=== PATIENT | male | born 1960 | race Caucasian/White ===

== ENCOUNTER 2020-10-19 10:23 | Outpatient (CLI) | payer OTHER, SELFPAY ==
[2020-10-19 10:56] LABS: Basophils Percent Auto 0.6 % (0.2-1.2); Eosinophils Absolute Auto 0.2 K/mm3 (0-0.3); Eosinophils Percent Auto 3.2 % (0-4.4); Hematocrit 51.1 % (42.0-52.0); Hemoglobin 16.7 g/dL (14.0-18.0); Immature Granulocyte Absolute 0.03 K/mm3 (0.00-0.031); Immature Granulocyte Percent A 0.5 % (0-0.5); Immature Platelet Fraction Pct 5.9 % (0.9-11.2); Lymphocytes Absolute Auto 1.76 K/mm3 (0.9-3.2); Mean Corpuscular HGB Conc 32.7 g/dl (32-36); Mean Corpuscular Hemoglobin 28.4 pg (26-34); Mean Corpuscular Volume 86.8 fl (80-100); Mean Platelet Volume 11.2 fl (7.4-10.4); Monocytes Absolute Auto 0.6 K/mm3 (0.1-0.6); Monocytes Percent Auto 8.6 % (2.6-8.5); Neutrophils Absolute Auto 3.9 K/mm3 (1.3-6.7); Neutrophils Percent Auto 60.1 % (45.5-73.1); Platelet Count Result 138 k/mm3 (150-375); Red Blood Count 5.89 M/mm3 (4.6-6.20); Red Cell Distribution Width 13.2 % (11.5-14.5); White Blood Count 6.5 K/mm3 (4.5-10.0)
[2020-10-19 11:03] LABS: Anion Gap 9 mmol/L (8-16); Blood Urea Nitrogen 19 mg/dL (9-20); Calcium 10.4 mg/dL (8.4-10.2); Carbon Dioxide 26 mmol/L (22-30); Chloride 104 mmol/L (98-107); Cholesterol 147 mg/dL (0-200); Estimated Glomerular Filt Rate 56; Glucose 115 mg/dL (65-110); HDL Direct 33 mg/dL; Potassium 4.6 mmol/L (3.4-5.0); Sodium 139 mmol/L (137-145); Triglycerides 124 mg/dL (<150)
[2020-10-19 11:13] LABS: LDL Cholesterol Direct 80 mg/dL
[2020-10-19 11:33] LABS: Prostate Specific Antigen 0.3 ng/mL (< OR = 4.0)
== END 2020-10-19 10:24 | disposition home or self-care (01) ==
LOC: ANHLAB 10:26
PROVIDERS: PCP Family Medicine; Visit Provider Family Medicine
DX: Z13.220 Encounter for screening for lipoid disorders (principal); I10 Essential (primary) hypertension; Z12.5 Encounter for screening for malignant neoplasm of prostate
CPT/HCPCS: 36415; 80048; 80061; 84153; 84443; 85025; 85055; G0103

== ENCOUNTER 2020-12-01 14:13 | Emergency (ER) | payer OTHER, SELFPAY ==
--- NOTE | ~2020-12-01 | US_ITS ---
EXAMINATION: US right upper quadrant DATE: 12/01/2020 17:18 INDICATION: Right upper quadrant pain, possible obstructing gallstone TECHNIQUE: Multiple grayscale and Doppler ultrasound images of the abdomen were obtained. COMPARISON: None available FINDINGS: Bowel gas obscures visualization of the pancreas. The liver demonstrates increased echogeni city, heterogenous echotexture, and decreased through transmission. No surface nodularity. Normal hep atopetal flow in the main portal vein. There appears to be a small amount of sludge in the gallbladde r. There is no gallbladder wall thickening or pericholecystic fluid. No gallstones are identified. Th e normal common bile duct measures 6 mm. Sonographic Huang sign is positive. IMPRESSION: 1. Gallbladder sludge and positive sonographic Huang sign without additional findings of acute shani cystitis. If there is high clinical concern for cholecystitis, consider further evaluation with nucle ar hepatobiliary scan. Reviewed, dictated and finalized at location A. IMPRESSION: 1. Gallbladder sludge and positive sonographic Huang sign without additional f indings of acute cholecystitis. If there is high clinical concern for cholecyst itis, consider further evaluation with nuclear hepatobiliary scan.
[2020-12-01 17:14] VITALS: BP 156/91; PULSE 78; RESP 16; TEMP 37.1; O2SAT 96
[2020-12-01 17:34] LABS: Basophils Percent Auto 0.3 % (0.2-1.2); Eosinophils Absolute Auto 0.2 K/mm3 (0-0.3); Hematocrit 46.4 % (42.0-52.0); Hemoglobin 15.5 g/dL (14.0-18.0); Immature Granulocyte Absolute 0.04 K/mm3 (0.00-0.031); Immature Granulocyte Percent A 0.3 % (0-0.5); Lymphocytes Absolute Auto 0.99 K/mm3 (0.9-3.2); Lymphocytes Percent Auto 8.4 % (18.3-44.2); Mean Corpuscular HGB Conc 33.4 g/dl (32-36); Mean Corpuscular Hemoglobin 28.9 pg (26-34); Mean Corpuscular Volume 86.4 fl (80-100); Monocytes Absolute Auto 1.2 K/mm3 (0.1-0.6); Monocytes Percent Auto 9.8 % (2.6-8.5); Neutrophils Absolute Auto 9.3 K/mm3 (1.3-6.7); Neutrophils Percent Auto 79.2 % (45.5-73.1); Platelet Count Result 165 k/mm3 (150-375); Red Blood Count 5.37 M/mm3 (4.6-6.20); Red Cell Distribution Width 13.2 % (11.5-14.5); White Blood Count 11.8 K/mm3 (4.5-10.0)
[2020-12-01 17:47] LABS: Alanine Aminotransferase 19 U/L (4-50); Albumin Level 4.3 g/dL (3.5-5.1); Alkaline Phosphatase 71 U/L (38-126); Anion Gap 11 mmol/L (8-16); Aspartate Amino Transferase 22 U/L (17-59); Bilirubin,Total 1.6 mg/dL (0.2-1.3); Blood Urea Nitrogen 17 mg/dL (9-20); Calcium 9.1 mg/dL (8.4-10.2); Carbon Dioxide 24 mmol/L (22-30); Chloride 98 mmol/L (98-107); Estimated Glomerular Filt Rate > 60; Glucose 133 mg/dL (65-110); Potassium 4.2 mmol/L (3.4-5.0); Sodium 133 mmol/L (137-145)
[2020-12-01 17:51] LABS: INR 1.1
--- NOTE | 2020-12-01 18:11 | ED.ABDPAIN ---
HPI - Abdominal Pain General Chief Complaint: Abdominal Pain Time Seen by Provider: 12/01/20 16:33 Source: patient Mode of arrival: ambulatory Limitations: no limitations History of Present Illness HPI narrative: 59-year-old with a history of hypertension, CAD here with complaints of right upper abdominal pain on and off for past few days. Patient states that he was vacationing at [facility] developed right upper quadrant pain had been to local ER had an ultrasound which showed impacted gallstone. Patient states that he was advised surgery and ERCP however patient declined .Pt states his pain is much better, no fever or chill , he drnies any nausea or vomiting ,no dark urine. MD elicited complaint: abdominal pain Pertinent past history: other (gall bladder) Onset (ago): week(s) Pain Consistency: now resolved Location: RUQ Severity: mild Quality: aching Radiation: none Migration to: no migration Exacerbating factors: nothing Relieving factors: nothing Associated symptoms: denies other symptoms Related Data Home Medications Medication Instructions Recorded Confirmed aspirin 81 mg tablet,delayed 81 mg PO DAILY 02/17/19 10/18/20 release rosuvastatin 20 mg tablet 20 mg PO DAILY 02/17/19 10/18/20 ezetimibe 10 mg tablet 10 mg PO DAILY 10/18/20 10/18/20 Allergies Allergy/AdvReac Type Severity Reaction Status Date / Time Penicillins Allergy Unknown Unknown Verified 12/01/20 17:11 Review of Systems Review of Systems: All systems reviewed & are unremarkable except as noted in HPI and below Constitutional: Constitutional: Reports no additional constitutional complaints Eyes: Eyes: Reports no additional eye complaints ENT: Reports system reviewed and no additional complaints, except as documented Cardiovascular: Cardiovascular: Reports no additional cardiovascular complaints Respiratory: Respiratory: Reports no additional respiratory complaints Gastrointestinal: Gastrointestinal: Reports as per HPI Musculoskeletal: Musculoskeletal: Reports no additional musculoskeletal complaints Integumentary/Breasts: Skin/Breast: Reports system reviewed and no additional complaints, except as docu PMFSH Past Medical History Medical History Anxiety as acute reaction to gross stress Coronary artery disease Essential (primary) hypertension Family History Family History Father Family history of gout Hypertension Family history of throat cancer Sibling Cerebrovascular accident Mother Family history of heart disease in male family member before age 55 Social History Social History Smoking status: Former smoker Alcohol intake: current Exam Narrative: GENERAL: Well-appearing, well-nourished, and in no acute distress. HEAD: Normocephalic, atraumatic. EYES: PERRLA and EOMI.. NECK: Supple. CHEST: Clear to auscultation. No respiratory distress. HEART: Regular rate and rhythm. No murmur heard. Normal peripheral pulses. ABDOMEN: Soft, nontender, nondistended, normal active bowel sounds. EXTREMITIES: Normal range of motion. No edema. SKIN: Warm, dry, no rash. NEURO: No focal deficits. Alert and oriented x3. PSYCH: Normal mood and affect. Course Course Emergency Course: Inform patient about his letter lab work and repeat ultrasound. This time there is no obstructive stone.. I discussed with Dr. Mcdermott patient can be discharged home and followed up in his office. Patient does feel comfortable going home. Vital Signs Vital signs: Vital Signs Temperature 37.1 C 12/01/20 17:14 Pulse Rate 78 12/01/20 17:14 Respiratory Rate 16 12/01/20 17:14 Blood Pressure 156/91 H 12/01/20 17:14 Pulse Oximetry 96 12/01/20 17:14 Temperature 37.1 C 12/01/20 17:14 Pulse Rate 78 12/01/20 17:14 Respiratory Rate 16 12/01/20 17:14
[2020-12-01 18:45] VITALS: BP 138/87; PULSE 87; RESP 16; O2SAT 97
== END 2020-12-01 18:49 | disposition home or self-care (01) ==
PROVIDERS: Emergency Provider Family Medicine; PCP Family Medicine
DX: K80.20 Calculus of gallbladder without cholecystitis without obstruction (principal); I25.10 Atherosclerotic heart disease of native coronary artery without angina pectoris; I10 Essential (primary) hypertension; Z79.82 Long term (current) use of aspirin; Z87.891 Personal history of nicotine dependence
CPT/HCPCS: 36415; 76705; 80053; 85025; 85610; 99284

== ENCOUNTER → 2020-12-21 02:44 | Outpatient (CLI) | payer OTHER, SELFPAY ==
[2020-12-21 19:14] LABS: SARS-CoV-2 RNA PCR Negative
== END ==
PROVIDERS: PCP Family Medicine; Visit Provider Surgery
DX: Z20.822 Contact with and (suspected) exposure to COVID-19 (principal)
CPT/HCPCS: C9803; U0003; U0005

== ENCOUNTER 2020-12-21 08:14 | Outpatient (CLI) | payer OTHER, SELFPAY ==
[2020-12-21 08:56] LABS: Amylase 81 U/L (30-110); Lipase 154 U/L (23-300)
== END 2020-12-21 08:15 | disposition home or self-care (01) ==
LOC: ANHSURGERY 08:19
PROVIDERS: PCP Family Medicine; Visit Provider Surgery
DX: Z01.812 Encounter for preprocedural laboratory examination (principal); K80.10 Calculus of gallbladder with chronic cholecystitis without obstruction
CPT/HCPCS: 36415; 82150; 83690; 86850; 86900; 86901

== ENCOUNTER 2020-12-24 02:53 | Day surgery (SDC) | payer OTHER, SELFPAY ==
[2020-12-20 10:11] VITALS: BMI 32.5
[2020-12-24] VITALS (8 sets, daily range): BP systolic 106–140; BP diastolic 52–99; PULSE 60–77; RESP 10–20; TEMP 36.6–37; O2SAT 94–97
--- NOTE | ~2020-12-24 | XR_ITS ---
Corrected Report Wrong Visit # 12/27/2020 CRISTO EXAMINATION: XR cholangiogram surg 1st inj DATE: 12/24/2020 14:07 INDICATION: Gallstones. TECHNIQUE: 99 fluoroscopic images of the right upper quadrant were obtained during intraoperative cholangiography performed by the surgeon. I was not present in the operating room. Fluoroscopy exposure time was 17 seconds. COMPARISON: Ultrasound 12/01/2020 FINDINGS: There is a catheter in the cystic duct. There is contrast opacification of the biliary tree and passage of contrast into the duodenum. There are small mobile filling defects in the cystic duct. IMPRESSION: 1. Small mobile filling defects in the cystic duct, which may be gallstones. Reviewed, dictated and finalized at location A. OND [place]ATS
[2020-12-24] MEDS: ACETAMINOPHEN 500 MG TABLET 1000 MG PO (11:22)
[2020-12-24] MEDS: LACTATED RINGERS 1,000 ML 30 ML IV CONT ×2 (11:50→14:32)
[2020-12-24] MEDS: KETOROLAC 15 MG/ML VIAL (*BKC) IV PUSH (11:59)
--- NOTE | 2020-12-24 13:03 | WPDANESEPPF ---
Anes - Initial Pre Proc Eval Procedure: Operation Date: 12/24/20 13:00 Proposed Procedures p Laparoscopic Cholecystectomy with Intraoperative Cholangiogram, Possible Open - Sly Duran DO Date/Time: 12/24/20 13:03 Surgeon: Sly Duran DO Pre Op Diagnosis: chronic cholecystitis , gallbladder sludge Patient Data Age: 59 Gender: M Height: 1.79 m Weight: 102.3 kg Last Vital Signs Temp 37.0 C 12/24/20 11:22 Pulse 76 12/24/20 11:22 Resp 20 12/24/20 11:22 BP 140/88 12/24/20 11:22 Pulse Ox 97 12/24/20 11:22 Allergies Allergy/AdvReac Type Severity Reaction Status Date / Time Penicillins Allergy Severe Hives Verified 12/24/20 11:17 Home Medications Medication Instructions Recorded Confirmed Type aspirin 81 mg tablet,delayed 81 mg PO DAILY 02/17/19 12/24/20 History release rosuvastatin 20 mg tablet 20 mg PO DAILY 02/17/19 12/24/20 History enalapril maleate 10 mg tablet 10 mg PO DAILY #90 tablet 02/23/20 12/24/20 Rx ezetimibe 10 mg tablet 10 mg PO DAILY 10/18/20 12/24/20 History metoprolol succinate 25 mg 25 mg PO DAILY #30 tablet 10/21/20 12/24/20 Rx tablet,extended release 24 hr Patient hx anesthesia problems: none Family hx anesthesia problems: none Results Review: All pre-operative results and documents have been reviewed as part of the pre-operative evaluation. [facility] Past Medical History Medical History (Updated 12/24/20 @ 13:03 by Jean Rob MD) Anxiety as acute reaction to gross stress Coronary artery disease Essential (primary) hypertension History of heart attack Hyperlipidemia Surgical History Surgical History History of coronary artery stent placement History of spinal fusion History of tonsillectomy Family History Family History Father Family history of gout Hypertension Family history of throat cancer Sibling Cerebrovascular accident Diabetes mellitus Mother Family history of heart disease in male family member before age 55 Social History Social History Smoking packs per day: 1 Smoking cigarettes per day: 20.0 Years smoked: 25 Smoking pack-years: 25.00 Smoking status: Former smoker Tobacco type: cigarettes Smoking end date: 03/19/15 Alcohol intake: current Drinks per week: 8 Alcohol use details: NONE FOR LAST MONTH Substance use: current Substance use type: marijuana Other substance usage details: SMOKE Last use: 12/16/20 Living arrangements: with family Additional occupation/education comments: [employer], [employer] Spiritual care concerns: No Anes - Eval Final PreProcedure Day of Procedure 12/24/20 13:03 Patient weight: obese Heart: regular rate and rhythm Lungs: decreased breath sounds Airway: Mallampati scale class II Neurological: alert and oriented Last oral intake: >/= 8 hours ASA classification: III Emergent: no Anesthetic plan: proceed Anesthesia type and monitoring: general ETT and standard monitoring Results Review: All pre-operative results and documents have been reviewed as part of the pre-operative evaluation. Informed Consent: The patient's anesthetic plan and its attendant risks and benefits were discussed with the patient/family/POA. Questions were solicited and answers provided to the satisfaction of the patient/family/POA.
--- NOTE | 2020-12-24 13:07 | WPDHPUPDATE1 ---
History and Physical Update Update Date/Time: 12/24/20 13:07 History and Physical has been reviewed, including an updated exam of the patient. There are NO changes in the patient's condition. Risks, benefits, and alternatives have been discussed and questions answered. Patient agrees to proceed with procedure.
[2020-12-24] MEDS: ceFAZolin 2 GM/D5W 50 ML 2 GM/50 ML BAG IVPB (13:20)
[2020-12-24] MEDS: LIDO 1%/EPINEPHRINE 1:100,000 50 ML VIAL 10 ML INFILTRATE (13:53)
--- NOTE | 2020-12-24 14:19 | W.PM.PROC2 ---
Procedure Note - Detailed Date of Procedure 12/24/20 Pre-op Diagnosis chronic cholecystitis , gallbladder sludge Post-op Diagnosis same (Gallbladder hydrops) Procedure Performed Laparoscopic Cholecystectomy with intraoperative cholangiogram Surgeon Sly Duran DO Anesthesia general and local (1% lidocaine with epinephrine and 0.25% bupivacaine) Indications This is a 59-year-old man who presented with intermittent right upper quadrant abdominal pain. Had a previous episode while away on vacation and went to an emergency department at an outside facility. He had evidence of acute cholecystitis and had some elevated liver enzymes at that time as well. He declined surgery at that time and waited till he got back home to follow-up. Discussions were now made with the patient about treatment options and decision was made to proceed with laparoscopic cholecystectomy with intraoperative cholangiogram, possible open. Findings Laparoscopic cholecystectomy with intraoperative cholangiogram was performed. The gallbladder appeared to have evidence of hydrops and chronic cholecystitis. There was a medium-sized stones stuck at the neck of the gallbladder. The cystic duct appeared normal in size. The intraoperative cholangiogram was obtained using Omnipaque contrast and no obstruction or filling defects were noted within the common bile duct. The gallbladder was removed and sent to the lab for pathology. Description of Procedure Procedure as well as risks, benefits, and alternatives were discussed with patient. Written consent was obtained and placed in chart prior to procedure. The patient was brought back to surgical suite. Patient was placed in supine position on operating table. Time-out was done to confirm patient and procedure. Patient was then intubated by the anesthesia department. Abdomen was prepped and draped in sterile fashion using chlorhexidine prep. 0.5% bupivacaine with epinephrine was infiltrated at each site of incision. A 5 millimeter incision was made near the umbilicus, and a 5 millimeter Optiview trocar was advanced through the abdominal layers under direct visualization. Once inside the abdominal cavity, carbon dioxide was insufflated to create a pneumoperitoneum. The camera was inserted and the abdomen was inspected. No immediate abnormalities were identified. The patient was placed in reverse Trendelenburg position and rotated slightly to the left. An 11 millimeter incision was made in the subxiphoid region, and an 11 millimeter trocar was inserted under direct visualization. Two 5 millimeter incisions were made in the right upper quadrant, and two 5 millimeter trocars were inserted under direct visualization. The gallbladder was identified and grasped at the fundus and retracted superiorly. It was then grasped at the infundibulum retracted laterally. Careful dissection around the neck of the gallbladder was performed using blunt dissection with a [place] grasper and hook electrocautery. The cystic duct was identified, and a window was created behind it. The cystic artery was also identified and a window was created behind it. The critical view of safety was identified, visualizing the cystic duct running directly into the neck of the gallbladder, and the cystic artery running directly into the wall of the gallbladder. A 5 millimeter clip concert singer was then used to place 2 clips proximally and 1 clip distally on the cystic artery. It was then transected using endoscopic scissors. The Jama clamp was then placed across the distal neck of the gallbladder just beyond the large stone. The cholangiocatheter was then advanced into the cystic duct. Bile was able to be aspirated and the catheter flushed with saline with ease. The patient was flattened out in bed and fluoroscopy was used to obtain the intraoperative cholangiogram using Omnipaque contrast. The images were sent to the radiologist for interpretation. The patient was then p
== END 2020-12-24 16:10 | disposition home or self-care (01) ==
PROVIDERS: PCP Family Medicine; Visit Provider Surgery
PROC: 0FT44ZZ Resection of Gallbladder, Percutaneous Endoscopic Approach (ICD-10-PCS; CPT 47562; principal; 2020-12-24 13:00)
DX: K80.10 Calculus of gallbladder with chronic cholecystitis without obstruction (principal); K82.1 Hydrops of gallbladder; I10 Essential (primary) hypertension; I25.2 Old myocardial infarction; I25.10 Atherosclerotic heart disease of native coronary artery without angina pectoris; E78.5 Hyperlipidemia, unspecified; Z79.82 Long term (current) use of aspirin; Z95.5 Presence of coronary angioplasty implant and graft; Z98.1 Arthrodesis status; Z87.891 Personal history of nicotine dependence; F12.90 Cannabis use, unspecified, uncomplicated; E66.9 Obesity, unspecified; Z68.31 Body mass index [BMI] 31.0-31.9, adult
CPT/HCPCS: 47563; 36415; 74300; 82150; 83690; 86850; 86900; 86901; 88304; A9270; C9803; J0690; J1100; J1170; J1885; J2250; J2405; J2704; J3010; J7030; J7120; Q9966; U0003; U0005

== ENCOUNTER 2023-01-31 12:29 | Outpatient (CLI) | payer OTHER, SELFPAY ==
[2023-01-31 13:23] LABS: Hematocrit 51.7 % (42.0-52.0); Hemoglobin 17.6 g/dL (14.0-18.0); Mean Corpuscular Hemoglobin 28.2 pg (26-34); Mean Corpuscular Volume 82.9 fl (80-100); Mean Platelet Volume 12.3 fl (7.4-10.4); Platelet Count Result 197 k/mm3 (150-375); Red Blood Count 6.24 M/mm3 (4.6-6.20); Red Cell Distribution Width 12.7 % (11.5-14.5); White Blood Count 26.5 K/mm3 (4.5-10.0)
[2023-01-31 13:34] LABS: Alanine Aminotransferase 18 U/L (6-50); Albumin Level 4.5 g/dL (3.5-5.1); Alkaline Phosphatase 77 U/L (38-126); Amylase 79 U/L (30-110); Anion Gap 13 mmol/L (8-16); Aspartate Amino Transferase 21 U/L (17-59); Bilirubin,Total 1.8 mg/dL (0.2-1.3); Blood Urea Nitrogen 18 mg/dL (9-20); Calcium 9.3 mg/dL (8.4-10.2); Carbon Dioxide 24 mmol/L (22-30); Chloride 96 mmol/L (98-107); Estimated Glomerular Filt Rate > 60; Glucose 227 mg/dL (65-110); Lipase 269 U/L (23-300); Potassium 4.1 mmol/L (3.4-5.0); Sodium 133 mmol/L (137-145)
[2023-01-31 13:57] LABS: Band Neutrophils Percent 7 % (0-6); Lymphocytes Absolute Manual 1.32 K/mm3 (1.1-4.5); Lymphocytes Percent Manual 5 % (18-44); Monocytes Absolute Manual 1.32 K/mm3 (0.1-0.90); Monocytes Percent Manual 5 % (3-9); Neutrophils Absolute Manual 23.85 K/mm3 (1.3-6.7); Neutrophils Percent Manual 83 % (46-73); Platelet Estimate Adequate (Adequate); Total Cells Counted 100
[2023-01-31 13:58] LABS: Schistocytes None Seen (NORMAL)
== END 2023-01-31 12:30 | disposition home or self-care (01) ==
LOC: ANHLAB 12:31
PROVIDERS: PCP Family Medicine; Visit Provider Physician Assistant Medical
DX: R10.12 Left upper quadrant pain (principal)
CPT/HCPCS: 36415; 80053; 82150; 83690; 85025